=== PATIENT | male | born 1975 | race Caucasian/White ===

== ENCOUNTER 2019-09-12 18:31 | Emergency (ER) | payer SELFPAY ==
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
[2019-09-12] MEDS ORDERED: Ketorolac 30 MG/ML SDV IM ONE (19:36)
== END 2019-09-12 20:10 | disposition home or self-care (01) ==
LOC: FB.ED 18:31
DX: S22.32XA Fracture of one rib, left side, initial encounter for closed fracture (principal); W50.0XXA Accidental hit or strike by another person, initial encounter
CPT/HCPCS: 71101-LT; 81001; 96372; 99283; 99285-25; J1885

== ENCOUNTER 2023-02-20 05:04 | Emergency (ER) | payer OTHER ==
[2023-02-20] MEDS ORDERED: Cephalexin 500 MG Cap PO ONE (06:29)
== END 2023-02-20 06:46 | disposition home or self-care (01) ==
LOC: FB.ED 05:04
DX: B08.02 Orf virus disease (principal)
CPT/HCPCS: 99282; A9270-GY